=== PATIENT | male | born 1960 | race Caucasian/White ===

== ENCOUNTER 2018-04-14 18:02 | Outpatient (REF) | payer BC, SELFPAY ==
[2018-04-14 21:30] LABS: C-Reactive Protein 2.39 mg/dL (0.0-0.3)
[2018-04-14 22:08] LABS: ESR 39 MM/HR (1-20)
== END 2018-04-14 18:22 ==
LOC: NCHCN 18:02
PROVIDERS: PCP Family Medicine; Visit Provider Family Medicine
DX: R51 Headache (principal); I63.89 Other cerebral infarction
CPT/HCPCS: 85652; 86140

== ENCOUNTER 2020-07-01 15:21 | Outpatient (REF) | payer BC, SELFPAY ==
[2020-07-01 14:44] LABS: ALT 29 U/L (16-63); AST 18 U/L (15-37); Albumin 3.8 g/dL (3.4-5.0); Alkaline Phosphatase 70 U/L (46-116); Anion Gap 11.1 mmol/L (3-11); BUN 18 mg/dL (7-18); Bilirubin, Total 0.9 mg/dL (0.2-1.0); CO2 25.9 mmol/L (21.0-32.0); CREATININE 1.1 mg/dL (0.70-1.30); Calcium 9.3 mg/dL (8.5-10.1); Chloride 102 mmol/L (98-107); Glucose 106 mg/dL (74-106); Potassium 4.3 mmol/L (3.5-5.1); Sodium 139 mmol/L (136-145); Total Protein 7.2 g/dL (6.4-8.2)
[2020-07-01 15:26] LABS: Hemoglobin A1C 5.8 % (<5.7)
== END 2020-07-01 15:22 | disposition home or self-care (01) ==
LOC: NCHCN 15:21
PROVIDERS: PCP Family Medicine; Visit Provider Nurse Practitioner Community Health
DX: R73.03 Prediabetes (principal); F10.10 Alcohol abuse, uncomplicated
CPT/HCPCS: 80053; 83036

== ENCOUNTER 2021-07-04 16:41 | Outpatient (REF) | payer BC, SELFPAY ==
--- OUTSIDE RECORDS SUMMARY | 2021-07-04 16:45 | XMS_ITS | Encounter Summary ---
:1960 Author Care Team Providers Name Role Phone Aniya Barrios NP Primary Care Provider [phone] [facility] Medical Records OTHER [phone] Reason for Visit None recorded. Assessment and Plan 1. Insomnia Sleep maintenance insomnia. Th is happens every night of the week. Some night he can get back to sleep and other nights he can't. He admits to high levels of anxiety and took something for this in t he past but he was allergic to it (he can't recall what it was). He has a high alcoh ol intake and I explained how this worsens sleep and can lead to insomnia. He is ta wilfredo trazodone 100 mg QHS and this helps him to fall asleep but it has not helped him stay asleep or get back to sleep. He was on as high as 150 mg but had significant re sidual grogginess in the morning. He has not been on anything else for sleep (other t topete melatonin which did not help. I offered him doxepin to try in place of trazodone and he is interested in trying this. I sent in a Rx for doxepin 10 mg and covered si de effects. I recommended he start on a weekend when he doesn't have to get up e norma to work. He is to STOP trazodone when he starts doxepin. ? zolpidem 5 mg tablet ? doxepin 10 mg capsule ? polysomnogram 2. Snoring He snores but is not sure how loud or often. He denies excessive daytime sleepiness (ESS 2) but he has fatigue, night sweats, nocturia and nocturnal heartburn which could indicate an underlyin g ALICIA (or be from alcohol intake). His B christen score is 2/3 indicating a high likelihood of ALICIA so I have recommended proceeding with a sleep study. He says he had a stroke in 2018 and he has not slept w ell since that time. He may have central sleep apnea related to this. I discussed the pathophysiology of obstructive and central sleep apnea and the potential consequences of untreated ALICIA including how it relates to his symptoms and comorbid ities. I ordered a polysomnogram and discussed what will take place the night of the sleep study. I will see him back to review the results as soon as they are available. I provided greater than 40 minutes in e care of this patient, more than half the time was spent in [id number] counseling. 3. Chronic obstructive lung dise ase He may have hypoxemia related to this. WIll get PSG for further evaluation. Discussion Note: None recorded.Patient educational handouts: No information available. Plan of Care Reminders Provider Appointments Office [address] Gonzalez, 07/19/2021 GLOBE CHANGER 2:45PM Lab None recorded. ? ? Referral None recorded. ? ? Procedures None recorded. ? ? Surgeries None recorded. ? ? Imaging Polysomnogram ? 04/27/2021 Medications Name Start Date ? ? Asprin Ec Low Dose 81 mg tablet,delayed release ? Take 1 tablet every day by oral route. atorvastatin 40 mg tablet ? Take 1 tablet every day by oral route in the evening. doxepin 10 mg capsule ? take 1 PO QHS EpiPen 0.3 mg/0.3 mL injection, auto-injector ? Take 1 auto as needed by injection route. Flovent Diskus 100 mcg/actuation powder for inhalation ? Inhale 1 puff twice a day by inhalation route. lisinopril 5 mg tablet ? Take 1 tablet every day by oral route. pantoprazole 20 mg tablet,delayed release ? Take 2 tablets every day by oral route. trazodone 100 mg tablet ? Take 1 tablet twice a day by oral route. zolpidem 5 mg tablet ? take 1-2 PO night of sleep study if needed Medications Administered None recorded. Vitals Height Weight BMI Blood Pressure 5 ft 4 in 170 lbs 29.2 kg/m2 110/80 mm[Hg] Results Lab Results None recorded. Allergies Code Code System Name Reaction Severity Onset Bee Venom Protein ? ? ? (Honey Bee) 7646 RxNorm Omeprazole ? ? ? Shellfish Derived ? ? ? Problems Name Status Onset Date Source ? Tubular Adenoma of Colon Active 12/23/2020 ? Hyperlipidemia Active 12/23/2020 ? Body Mass Index 25-29 - Overweight Active 12/23/2020 ? Anxiety Active 12/23/2020 ? Alcoholism Active 12/23/2020 ? Insomnia Active 12/23/2020 ? Hypertensive Disorder Active 12/23/2020 ? Embolic Stroke Active 12/23/2020 ? Gastroesophageal Reflux Disease Active 12/23/2020 ? Microscopic Hematuria Active 12/23/2020 ? Ingrowing Toenail Active 12/23/2020 ? Diastasis Recti Active 12/23/2020 ? Prediabetes Active 12/23/2020 ? Ex-smoker Active 12/23/2020 ? History of Diverticulitis Active 12/23/2020 ? Chronic Obstructive Lung Disease Active 04/27/2021 ? Snoring Active 04/27/2021 ? Procedures Date Name Performed by ? 04/27/2021 Polysomnogram Information not avai lable Vaccine List None recorded. Social History Tobacco Smoking Status Former Smoker Notes: quit 6 years ago What is your level of alcohol Occasional Notes: 4 beers a day 6pk on consumption? weekends Live alone or with others? with others Are you currently employed? Y Which illicit or recreational drugs marijaunana have you used? What is your level of caffeine None consumption? Do you or have you ever used any N other forms of tobacco or nicotine? Do you use any illicit or Y recreational drugs? 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 Past Encounters 04/27/2021 Insomnia; Snoring; Chronic Obstructive L chanell Disease Rosa Gonzalez NP: [address] [place] [phone], Ph. History of Present Illness Note: <div>Arturo Jimenez is seen in consultation at the request of Libertad Hobson NP for evaluation of sleep disturbance.</div><div>
</div><div>Pradeep has a medical history to include alcoholism, anxiety, GERD, HLD, HTN, insomnia, diverticulitis, and pre-DM. Labs 07/01/20 CMP glucose 106, A1C 5.8%. </div><div>
</div><div>{{Patient Pradeep#}} feels {{his* her}} biggest problem with sleep is {{snoring waking up a lot not feeling rested staying asleep#}}. {{He* She}} typically goes to bed at {{9 10:30#}}pm. It takes {{5 10-15#}} minutes tofall asleep. {{He* She}} wakes up {{1* 2 3}} times a night from {{unknown reason* pain bathroom}} and it takes {{ 3-4#}} hours to get back to sleep. {{He* She}} gets up at {{5 6 7 8}}am to start {{his* her}} day. {{He* She}} does not take naps. {{He* She}} has disturbances to {{his* her}} sleep to include having {{TV* lights noise children pets}} in the bedroom at night. {{He* She}} has never had a sleep study. {{He* She}} sleeps {{alone* with someone}} in a bed.</div><div>
</ div><div>
</div><div>
</div><div>SLEEP QUALITY: Feels quality of sleep most nights is {{good okay poor*}}.</div><div>
</div> <div>
</div><div>DAYTIME ALERTNESS: Reports level of alertness most days to be {{alert low energy* sleepy very sleepy}}.</div><div>
</div><div&gt ;
</div><div>PSYCH SYMPTOMS: {{Has* Has not}} noted worsening memory {{and or but not#}} concentration. {{Does have* Denies current problems with}} irritability and depression, {{and or but no#}} anxiety. {{Has Has not*}} noted difficulty with calculations.</div><div>&l t;br></div><div>
</div><div>
</div><div>INSOMNIA SYMPTOMS: {{Does have* Does not have}} an active mind at night when trying to sleep. {{Does have * Does not have}} stressful thoughts interfering with sleep. {{Does* Does not}} watch the clock throughout the night. {{Does* Does not}} worry about getting a good night's sleep. </div><div>
</div><div>
</div><div>
</div><d iv>BREATHING SYMPTOMS: {{Does have Does not have*}} snoring. {{Does have Does not have*}} witnessed apnea. {{Does have Does not have*}} nocturnal choking/gasping/dyspnea.{{Does have Does not have*}}mouth breathing. {{Does have Does not have*}} nasal congestion at night.</div><div>
</div><div>
</div><div>
</div><div><br&g t;</div><div>
</div><div>MOVEMENT SYMPTOMS: {{Does have* Does not have}} tossing & turning. {{Does have* Does not have}} messy sheets in the morning. {{Does have Does not have*}} leg or arm jerks, kicks or twitches in sleep or prior to falling asleep. {{Does Does not*}} have an aching, restless or crawling feeling in legs at night. {{Does Does not*}} have a hard time keeping legs still when trying to sleep. {{Does Does not*}} have muscle cramps or Sukhi horses. {{Does Does not*}} have sleep walking or talking.</div><div><b r></div><div>
</div><div>
</div><div><br& gt;</div><div>
</div><div>DREAM SYMPTOMS: {{Does have Does not have*}} nightmares often that affect ability to sleep. {{Does have Does not have*}} dreams of suffocating/drowning. {{Does Does not*}} dream shortly after falling asleep. {{Does Does not*}} see dreams in the room even when awake.{{Does Does not*}} see or hear things in the room when falling asleep that aren't really there. {{Does Does not*}} see things in the road when driving that aren't really there. {{Has Has not*}} had someone see then act our their dreams. {{Has Has not*}} accidentally injured themselves while sleeping due to own movements/behaviors.</div><div>
& lt;/div><div>
</div><div>
</div><div>CATAPLEXY SYMPTOMS: {{Does have Does not have*}} feel limp, lose strength, or fall asleep when very angry, surprised or laughing. {{Does have Does not have*}} leg, arm or face weakness when upset. {{Has Has not*}} had episodes of being unable to move when waking up which is often frightening.</div><div>
</div><div>
</div><div>
</div><div>DR MEEHAN: {{Has Has not*}} fallen asleep or nearly fallen asleep driving. {{Has had Has not had*}} an accident related to drowsy driving or not paying attention. {{Does Does not*}} forget the last few miles or minutes while driving. {{Has Has not*}} driven out of jared and crossed center line or gone [place] when driving. {{Has Has not*}} had a passenger tell them they look sleepy when driving.</div><div>
</div><div>
</div><div>
</div><div>ESS today 2</div><div>
</div><div>Crawford Questionnaire Score 2/3</div>Review of Systems: ROS as noted in the HPI Review of Systems ? Notes: <div>generally feels ill, ni ght sweats, MCDONALD, wheeze, palpitations, heartburn, (wakes with this prior to st arting PPI), headaches, leg weakness and claustrophobia.</div> Physical Exam ? Notes: <div>General: A&O, well groo med, answers questions appropriately, {{over weight* obese morbidly obese normal weight thin}}.

HEAD: normocephalic & atraumatic, {{normal appea ring chin retrognathia*}}.

EYES: non icteric.

NOSE: open n macario passages, septum midline, no polyps or masses.

THROAT/MOUTH : moist mucous membranes, modified mallampati score {{1 2* 3 4}}, tonsils without hypertrophy. Lateral wall narrowing grade {{1* 2 3}}. Tongue scallopin g {{is is not*}} noted.

NECK: supple without palpable lymph nodes .

LUNGS: Faint expiratory wheezing at bilateral bases. Good air mo vement.

CARDIO: RRR without murmur, gallop or thrill.

ABDOME N: soft and non tender with positive bowel sounds.

MS: Good ROM of all extremities. No cyanosis, clubbing or edema.

NEURO: A&O. No rmal gait.

PSYCH: Normal mood and affect.

CUTANEOUS: no overt lesions or rashes</div>
--- OUTSIDE RECORDS SUMMARY | 2021-07-04 16:45 | XMS_ITS ---
:1960 Author Care Team Providers Name Role Phone [facility] MEDICAL RECORDS OTHER [phone] TAHIRA TREVIÑO NP Primary Care Provider [phone] Allergies Code Code System Name Reaction Severity Status Onset Bee Venom ? ? Active ? Protein (Honey Bee) 7646 RxNorm Omeprazole ? ? Active ? Shellfish ? ? Active ? Derived Medications Name Status Start Date Stop Date ? ? Asprin Ec Low Dose 81 mg tablet,delayed release Active ? Not available Take 1 tablet every day by oral route. atorvastatin 40 mg tablet Active ? Not av ailable Take 1 tablet every day by oral route in the evening. doxepin 10 mg capsule Active ? Not availa ble take 1 PO QHS EpiPen 0.3 mg/0.3 mL injection, auto-injector Active ? Not available Take 1 auto as needed by injection route. Flovent Diskus 100 mcg/actuation powder for inhalation Active ? Not available Inhale 1 puff twice a day by inhalation route. lisinopril 5 mg tablet Active ? Not avail able Take 1 tablet every day by oral route. pantoprazole 20 mg tablet,delayed release Active ? Not available Take 2 tablets every day by oral route. trazodone 100 mg tablet Active ? Not avai lable Take 1 tablet twice a day by oral route. zolpidem 5 mg tablet Active ? Not availab le take 1-2 PO night of sleep study if needed Problems Name Status Onset Date Source ? [...] ? 04/27/2021 Polysomnogram Information not avai lable 05/08/2021 Home Sleep Study Information not avai lable Results Lab Results None recorded. Past Encounters 04/27/2021 Insomnia; Snoring; Chronic Obstructive L chanell Disease Rosa Gonzalez [employer]: [address] [place] [phone], Ph. Social History Tobacco Smoking Status Former Smoker Notes: quit 6 years ago Vaccine List None recorded. Plan of Care Reminders Provider Appointments None ? ? recorded. Lab None ? ? recorded. Referral None ? ? recorded. Procedures None ? ? recorded. Surgeries None ? ? recorded. Imaging None ? ? recorded. Vitals Height Weight BMI Blood Pressure 162.56 cm 77.11 kg 29.2 kg/m2 110/80 mm[Hg]
[2021-07-04 22:13] LABS: Hemoglobin A1C 5.7 % (<5.7)
[2021-07-04 22:21] LABS: ALT 30 U/L (16-63); AST 19 U/L (15-37); Albumin 3.7 g/dL (3.4-5.0); Alkaline Phosphatase 83 U/L (46-116); Anion Gap 7.6 mmol/L (3-11); BUN 18 mg/dL (7-18); Bilirubin, Total 0.6 mg/dL (0.2-1.0); CO2 27.4 mmol/L (21.0-32.0); Calculated LDL 56 mg/dL (<100); Chloride 103 mmol/L (98-107); Cholesterol 161 mg/dL (<200); Glucose 98 mg/dL (74-106); HDL Cholesterol 83 mg/dL (40-60); Magnesium 2.1 mg/dL (1.8-2.4); Potassium 4.3 mmol/L (3.5-5.1); Sodium 138 mmol/L (136-145); Total Protein 7.1 g/dL (6.4-8.2); Triglyceride 112 mg/dL (<150)
== END 2021-07-04 16:42 | disposition home or self-care (01) ==
LOC: NCHCN 16:41
PROVIDERS: PCP Family Medicine; Visit Provider Nurse Practitioner Family
DX: I10 Essential (primary) hypertension (principal); R73.03 Prediabetes; Z51.81 Encounter for therapeutic drug level monitoring
CPT/HCPCS: 80053; 80061; 83036; 83735

== ENCOUNTER 2022-07-04 16:43 | Outpatient (REF) | payer BC, SELFPAY ==
[2022-07-05 11:49] LABS: ALT 28 U/L (16-63); AST 21 U/L (15-37); Albumin 3.9 g/dL (3.4-5.0); Alkaline Phosphatase 77 U/L (46-116); Anion Gap 6.1 mmol/L (3-11); BUN 19 mg/dL (7-18); Bilirubin, Total 0.7 mg/dL (0.2-1.0); CO2 28.9 mmol/L (21.0-32.0); CREATININE 1.1 mg/dL (0.70-1.30); Calculated LDL 62 mg/dL (<100); Chloride 100 mmol/L (98-107); Cholesterol 172 mg/dL (<200); Estimated GFR 76.37 (mL/min/1.73m2); Glucose 100 mg/dL (74-106); HDL Cholesterol 96 mg/dL (40-60); Potassium 4.1 mmol/L (3.5-5.1); Sodium 135 mmol/L (136-145); Total Protein 7.5 g/dL (6.4-8.2); Triglyceride 73 mg/dL (<150)
[2022-07-05 12:15] LABS: Calcium 9.4 mg/dL (8.5-10.1)
[2022-07-05 13:25] LABS: Hemoglobin A1C 5.7 % (<5.7)
== END 2022-07-04 16:44 | disposition home or self-care (01) ==
LOC: NCHCN 16:43
PROVIDERS: PCP Family Medicine; Visit Provider Nurse Practitioner Family
DX: I10 Essential (primary) hypertension (principal); R73.03 Prediabetes
CPT/HCPCS: 80053; 80061; 83036

== ENCOUNTER 2023-06-26 15:48 | Outpatient (REF) | payer BC, SELFPAY ==
[2023-06-26 15:12] LABS: ALT 36 U/L (16-63); AST 30 U/L (15-37); Albumin 3.6 g/dL (3.4-5.0); Alkaline Phosphatase 80 U/L (46-116); Anion Gap 6.9 mmol/L (3-11); BUN 19 mg/dL (7-18); Bilirubin, Total 0.8 mg/dL (0.2-1.0); CO2 28.1 mmol/L (21.0-32.0); CREATININE 1.4 mg/dL (0.70-1.30); Calcium 9.5 mg/dL (8.5-10.1); Calculated LDL 45 mg/dL (<100); Chloride 105 mmol/L (98-107); Cholesterol 161 mg/dL (<200); Estimated GFR 56.83 (mL/min/1.73m2); Glucose 111 mg/dL (74-106); HDL Cholesterol 103 mg/dL (40-60); Potassium 4.5 mmol/L (3.5-5.1); Sodium 140 mmol/L (136-145); Total Protein 7.4 g/dL (6.4-8.2); Triglyceride 65 mg/dL (<150)
[2023-06-26 15:14] LABS: Hemoglobin A1C 5.7 % (<5.7)
== END 2023-06-26 15:49 | disposition home or self-care (01) ==
LOC: NCHCN 15:48
PROVIDERS: PCP Family Medicine; Visit Provider Nurse Practitioner Family
DX: E78.5 Hyperlipidemia, unspecified (principal); I10 Essential (primary) hypertension; R73.03 Prediabetes
CPT/HCPCS: 80053; 80061; 83036

== ENCOUNTER 2024-06-05 09:06 | Day surgery (SDC) | payer BC, SELFPAY ==
[2024-06-05 09:26] VITALS: BP 123/90; PULSE 87; RESP 16; TEMP 36.3; O2SAT 95
--- NOTE | 2024-06-05 09:30 | ANES.PREOP_ITS ---
General Info Date of Service Date Performed: 06/05/24 Height: 5 ft 3 in Weight: 72.9 kg Body Mass Index (BMI): 28.4 Surgical Procedure: Operation Date: 06/05/24 10:05 Proposed Procedure Side Surgeon p Carmina Madrid MD Meds Allergies and Home Medications Allergies Allergy/AdvReac Type Severity Reaction Status Date / Time shellfish derived Allergy Severe Anaphylaxis Verified 06/05/24 09:29 venom-wasp Allergy Severe Anaphylaxis Verified 06/05/24 09:29 omeprazole Allergy Intermediate rash Verified 06/05/24 09:29 Home Medication ?Medication ?Instructions ?Recorded albuterol sulfate 90 mcg/actuation 2 puff inhalation Q6H PRN 05/06/24 aerosol inhaler aspirin 81 mg tablet,delayed 81 mg PO DAILY 05/06/24 release atorvastatin 40 mg tablet 40 mg PO QHS 05/06/24 epinephrine 0.3 mg/0.3 mL 0.3 mg IM Q5-15M PRN 05/06/24 injection, auto-injector fluticasone fur. 100 mcg-umeclid 1 inh inhalation DAILY 05/06/24 62.5 mcg-vilant 25 mcg inhalat.powder (Trelegy Ellipta) lisinopril 5 mg tablet 5 mg PO DAILY 05/06/24 paroxetine HCl 30 mg tablet (Paxil) 30 mg PO DAILY 05/06/24 trazodone 100 mg tablet 100 mg PO QHS PRN 05/06/24 bisacodyl 5 mg tablet,delayed 5 mg PO ONCE colonscopy bowel prep 05/21/24 release (Dulcolax (bisacodyl)) #4 tabs polyethylene glycol 3350 17 238 g PO ONCE colonoscopy prep 05/21/24 gram/dose oral powder #238 grams Current Visit Medications: Current Medications Generic Name Dose Route Start Last Admin Trade Name Freq PRN Reason Stop Dose Admin Ringer's Solution 1,000 mls @ 80 mls/hr 06/05/24 06:00 IV 06/05/24 23:59 INFUSION CINTHIA IV Miscellaneous Supplies 1 each 06/05/24 06:00 Iv Access IV 06/05/24 23:59 DIRECTED CINTHIA Sodium Chloride 0 ml 06/05/24 06:00 Normal Saline Flush 10 Ml Syr IV 06/05/24 23:59 PRN PRN Sodium Chloride 0 ml 06/05/24 06:00 Normal Saline 10 Ml Vial IJ 06/05/24 23:59 DIRECTED PRN Sterile Water 0 ml 06/05/24 06:00 Water,Injection,Sterile 10 Ml Vial IJ 06/05/24 23:59 DIRECTED PRN [facility] Medical History Medical History (Updated 06/05/24 @ 10:00 by Wing Delarosa CRNA) CVA (cerebral vascular accident) 2018, no residual effects Tubulovillous adenoma (~2014) Granulomatous disorder of the skin and subcutaneous tissue, unspecified History of alcohol abuse Diastasis of muscle Right bundle branch block CVD (cardiovascular disease) Pt denies ALICIA (obstructive sleep apnea) Anxiety Obesity Surgical History Surgical History History of colonoscopy with polypectomy 2014 tubulovillious with high grade dysplasia 2016 Neg 06/30/2019 Neg Tobacco Smoking/Tobacco Use Status: Former Tobacco Use Alcohol Alcohol Intake: current Alcohol intake frequency: 3 or more drinks per day Substance Use Substance use: Occasionally Substance use type: marijuana Details: Denies use in last 24hrs. Vital Signs and Lab Results Vital Signs Most Recent Vital Signs in EMR: Most Recent Vital Signs Temp Pulse Resp BP Pulse Ox 36.3 C L 87 16 123/90 95 06/05/24 09:26 06/05/24 09:26 06/05/24 09:26 06/05/24 09:26 06/05/24 09:26 Lab Results Blood Type / Crossmatch: No Data to Display Complete Blood Count: No Data to Display Complete Metabolic Panel: No Data to Display Liver Function Panel: No Data to Display Coagulation Panel: No Data to Display Cardiac Panel: No Data to Display Arterial Blood Gas: No Data to Display Venous Blood Gas: No Data to Display Pancreas Panel: No Data to Display Thyroid Panel: No Data to Display Infectious Disease: No Data to Display Blood Cultures: No Data to Display Toxicology Panel: No Data to Display Anesthesia Assessment and Plan Anesthesia History Personal History: No History of Anesthesia Complications Family History: No Family History of Anesthesia Complications Exercise Tolerance Exercise Tolerance: Metabolic Equivalents>4 Pertinent Negatives Pertinent Negatives: No Symptoms of GERD and No Major Cardiovascular Symptoms or Complaints Cardiac & Pulmonary Exam Cardiac Exam: Normal S1/S2 Heart Sounds Pulmonary Exam: Clear Bilateral Breath Sounds Implantable Cardiac Device Does patient have a Pacemaker or an ICD?: No Airway Exam Known Difficult Airway: No Mallampati Class: 2 Mouth Opening: Normal (> 3cm) Thyromental Distance: Less than 3 cm Neck Range of Motion: Full ROM Neck Circumference: Normal Teeth Condition: Normal Dentition ASA Classification ASA Score: ASA 3 Emergency Case?: No NPO Status NPO Status: NPO Clears >2 hours, Solids >8 hours Anesthesia Plan Resuscitation Status: Full Code Anesthesia Technique: General Anesthesia Airway Planned: Natural Airway Monitors Used: Standard Monitors
[2024-06-05 09:31] VITALS: BMI 28.4
[2024-06-05] MEDS: Lactated Ringers 1,000 ML 80 ML IV (09:52)
[2024-06-05 10:40] VITALS: BP 110/76; PULSE 81; RESP 16; TEMP 36.3; O2SAT 94
--- NOTE | 2024-06-05 10:51 | W.COLOREPORT ---
Date of service: 06/05/24 Time of Service: 10:53 Colonoscopy Report Date of procedure: 06/05/24 Pre-op diagnosis general: History of malignant colon polyp, rectosigmoid junction, CIS; Post-op diagnosis procedure note: other (Diverticular stricture) Procedure: Colonoscopy Surgeon: Katt Madrid Anesthesia Type: General:No Airway Estimated blood loss (mL): 0 Pathology: none sent Complications: None Disposition: same day Indications: Patient with history of a malignant colon polyp, colonic polyp contained CIS. Patient had diverticulitis since his last colonoscopy. Findings: Bowel prep was excellent. Polypectomy tattoo was visualized in the rectosigmoid junction and there was no sign of any polyp growth at that tattoo, proximal or distal, on careful exam. There was sigmoid diverticulosis with small diverticular orifices seen with associated muscular hypertrophy and a stiff kink which was difficult to traverse with the scope. The patient was placed in the supine position in order to pass the scope through this area. Procedure Description: After the risks, benefits, and alternatives of the procedure were thoroughly explained, informed consent was obtained. The Patient is brought to the procedure room and time out is performed confirming patient identity, nature of procedure. Patient is connected to monitoring devices including O2 sat, EKG and given supplemental oxygen per anesthesia. After appropriate anesthetic is obtained, patient is placed in the left lateral decubitus position and digital rectal exam performed with the findings noted . The colonoscope is inserted through the anus and guided under direct vision to the proximal colon as confirmed by presence of the appendiceal orifice and the ileocecal valve. The colonoscope is then slowly withdrawn , inspecting all aspects of the mucosa completely. Findings and any associated intervention, are noted above. The colonoscope was then completely withdrawn from the patient and the procedure terminated. The patient tolerated the procedure well and is transferred back to the Day surgery unit in stable condition.
[2024-06-05 11:05] VITALS: BP 126/82; PULSE 74; RESP 16; TEMP 36.5; O2SAT 95
--- NOTE | 2024-06-05 11:37 | W.ANESPOSTOP ---
Postoperative Evaluation Date, Time and Location Date Performed: 06/05/24 Time Performed: 10:55 Patient Location: Day Surgery Unit Vital Signs Most Recent Imported Vital Signs: Most Recent Vital Signs Temp Pulse Resp BP Pulse Ox 36.3 C L 81 16 110/76 94 06/05/24 10:40 06/05/24 10:40 06/05/24 10:40 06/05/24 10:40 06/05/24 10:40 Pain Score Most Recent Pain Score: Most Recent Pain Score Pain Level 0 06/05/24 10:40 Assessment Mental Status: Awake (Alert & Oriented to Patient Baseline) Airway and Respiratory Function: Patent airway with normal (patient baseline) respiratory exam Cardiovascular Function: Hemodynamically Stable Hydration Status: Adequately Hydrated Nausea & Vomiting: No Nausea or Vomiting Pain: Pt. Denies Any Pain Peripheral Nerve Block: Patient did not receive a nerve block
== END 2024-06-05 11:30 | disposition home or self-care (01) ==
PROVIDERS: PCP Nurse Practitioner Family; Visit Provider Surgery
PROC: 0DJD8ZZ Inspection of Lower Intestinal Tract, Via Natural or Artificial Opening Endoscopic (ICD-10-PCS; CPT 45378; principal; 2024-06-05 10:00)
DX: Z12.11 Encounter for screening for malignant neoplasm of colon (principal); K63.89 Other specified diseases of intestine
CPT/HCPCS: 45378; J2704

== ENCOUNTER 2024-06-24 13:58 | Outpatient (REF) | payer BC, SELFPAY ==
[2024-06-24 21:50] LABS: HCT 48.8 % (40.0-50.0); HGB 16.7 g/dL (13.5-17.5); MCH 33.1 pg (27.0-33.0); MCHC 34.2 % (32.0-36.0); MCV 97 fL (80-95); MPV 9.2 fL (8.0-11.0); Platelet Count 278 10^3/uL (130-400); RBC 5.05 10^6/uL (4.36-5.78); RDW 13.7 % (11.8-14.1); RDW-SD 49.2 fL; WBC 8.58 10^3/uL (4.4-10.8)
[2024-06-24 22:05] LABS: ALT 35 U/L (16-63); AST 28 U/L (15-37); Albumin 3.9 g/dL (3.4-5.0); Alkaline Phosphatase 79 U/L (46-116); Anion Gap 5.5 mmol/L (3-11); BUN 20 mg/dL (7-18); CO2 31.5 mmol/L (21.0-32.0); CREATININE 1.1 mg/dL (0.70-1.30); Calcium 10.1 mg/dL (8.5-10.1); Calculated LDL 62 mg/dL (<100); Chloride 104 mmol/L (98-107); Cholesterol 210 mg/dL (<200); Estimated GFR 75.43 (mL/min/1.73m2); Glucose 92 mg/dL (74-106); HDL Cholesterol 130 mg/dL (>or=40); Potassium 4.8 mmol/L (3.5-5.1); Sodium 141 mmol/L (136-145); Total Protein 7.9 g/dL (6.4-8.2); Triglyceride 92 mg/dL (<150)
[2024-06-24 22:21] LABS: Hemoglobin A1C 5.5 % (<5.7)
== END 2024-06-24 13:59 | disposition home or self-care (01) ==
LOC: NCHCN 13:58
PROVIDERS: PCP Nurse Practitioner Family; Visit Provider Nurse Practitioner Family
DX: E78.5 Hyperlipidemia, unspecified (principal); I10 Essential (primary) hypertension; I67.9 Cerebrovascular disease, unspecified
CPT/HCPCS: 80053; 80061; 85027; 83036